=== PATIENT | male | born 1955 | race Caucasian/White ===

== ENCOUNTER 2017-03-03 15:41 | Emergency (ER) | payer MEDICARE, OTHER ==
[~2017-03-03] VITALS: Ht 170.2 cm; Wt 90.7 kg
[2017-03-03] MEDS ORDERED: HYDROmorphone PF 1 MG/ML DISP.SYRIN IV PRN (16:00)
[2017-03-03] MEDS ORDERED: PIP/TAZO PER PHARMACY MC PRN (16:00)
[2017-03-03] MEDS ORDERED: IV NORMAL SALINE 500ML 500 ML IV ONE (16:00)
[2017-03-03] MEDS ORDERED: IV NORMAL SALINE 50ML 50 ML ONE (16:31)
[2017-03-03] MEDS ORDERED: PIPERACILLIN/TAZOBACTAM 4.5 GM VIAL IV ONE (16:31)
--- NOTE | 2017-03-03 16:37 | PHYS DOC ---
Past History Past Medical History: CAD, High Cholesterol, Hypertension Past Surgical History: Other Alcohol Use: Occasionally Drug Use: None Adult General Chief Complaint Chief Complaint: ABDOMINAL PAIN HPI HPI 61-year-old male presenting to the emergency department with pain in his abdomen that is sharp moderate nonradiating intermittent and without alleviating factors. He was seen by his primary care physician who ordered a CT scan of his abdomen which showed evidence of omental fat containing umbilical hernia with inflammatory changes suggestive of strangulation without bowel herniation. He was then directed by his primary care physician to the nearest emergency department. He has pain in his hernia and has noticed a red rash over top of it. He has nausea but has not been vomiting. He reports flatus. Review of systems is negative for fevers chills cough chest pain shortness of breath. All other review of systems is negative unless otherwise noted in history of present illness. ED course: 61-year-old male presenting to the emergency department today after being found to have a strangulated omental fat containing hernia and referred to the emergency department. On examination the patient, the patient has a large ventral hernia that is incarcerated and has clinical evidence of strangulation including overlying cellulitis and tenderness to palpation. The patient is placed nothing by mouth IV established and IV fluids administered along with IV antibiotics. I discussed the case with Dr. Jha our surgeon at [facility] at 4:15 PM. The patient last ate at 1 PM. I discussed the case with Dr. Hatch who will be the accepting physician as a direct admission for further evaluation workup and care. The patient does not show signs of bowel obstruction on CT scan and is not actively vomiting in the emergency department. Review of Systems Review of Systems SEE ABOVE. Current Medications Current Medications Current Medications Medications (Trade) Dose Ordered Sig/Ta Start Time Stop Time Status Last Admin Dose Admin Hydromorphone HCl (Dilaudid) 0.5 mg PRN Q30MIN PRN 03/03/17 16:00 Ondansetron HCl (Zofran) 4 mg 1X ONCE 03/03/17 16:45 03/03/17 16:46 Piperacillin Sod/ Tazobactam Sod (Zosyn Per Pharmacy) 1 each PRN DAILY PRN 03/03/17 16:00 Piperacillin Sod/ Tazobactam Sod 4.5 gm/Sodium Chloride 50 ml @ 100 mls/hr 1X ONCE 03/03/17 16:45 03/03/17 17:14 Sodium Chloride 500 ml @ 0 mls/hr 1X ONCE 03/03/17 16:00 03/03/17 16:22 DC Allergies Allergies Allergies Coded Allergies Type Severity Reaction Last Updated Verified No Known Drug Allergies 03/03/17 No Physical Exam Physical Exam SEE ABOVE Constitutional: Well developed, well nourished, no acute distress, non-toxic appearance. [] HENT: Normocephalic, atraumatic, bilateral external ears normal, oropharynx moist, no oral exudates, nose normal. Eyes: PERRLA, EOMI, conjunctiva normal, no discharge. [] Neck: Normal range of motion, no tenderness, supple, no stridor. Cardiovascular:Heart rate regular rhythm, no murmur [] Lungs & Thorax: Bilateral breath sounds clear to auscultation [] Abdomen: See above. Skin: Warm, dry, no erythema, no rash. [] Back: No tenderness, no CVA tenderness. [] Extremities: No tenderness, no cyanosis, no clubbing, ROM intact, no edema. [] Neurologic: Alert and oriented X 3, normal motor function, normal sensory function, no focal deficits noted. Psychologic: Affect normal, judgement normal, mood normal. [] Current Patient Data Vital Signs Vital Signs Date Time Temp Pulse Resp B/P (MAP) Pulse Ox O2 Delivery O2 Flow Rate FiO2 03/03/17 16:10 97.4 104 16 95 Room Air EKG EKG [] Radiology/Procedures Radiology/Procedures [] Course & Med Decision Making Course & Med Decision Making Pertinent Labs and Imaging studies reviewed. (See chart for details) [] Dragon Disclaimer Dragon Disclaimer This chart was dictated in whole or in part using Voice Recognition software in a busy, high-work load, and often noisy Emergency Department environment. It may contain unintended and wholly unrecognized errors or omissions. Departure Departure: Impression: Primary Impression: Ventral hernia Additional Impression: Strangulated ventral hernia Disposition: ADMITTED INPATIENT Condition: IMPROVED Referrals: SERAFIN SANCHEZ (PCP) Critical Care Time Critical care time was [35] minutes exclusive of procedures. Time was spent evaluating patient, reevaluating the patient, administration of IV fluids and antibiotics, discussion with consulting and admitting providers and documenting. Problem Qualifiers LUIS ORANTES MD Mar 03, 2017 16:37
[2017-03-03 16:42] VITALS: BP 122/69
[2017-03-03 16:44] LABS: BASO # 0.1 x10^3/uL (0.0-0.2); BASO % 1 % (0-3); EOS # 0.5 x10^3/uL (0.0-0.7); EOS % 5 % (0-3); HEMATOCRIT 39.5 % (39.0-53.0); LYMPH # 2.4 x10^3/uL (1.0-4.8); LYMPH % 24 % (24-48); MEAN CORPUSCULAR HEMOGLOBIN 35 pg (25-35); MEAN CORPUSCULAR HGB CONC 36 g/dL (31-37); MEAN CORPUSCULAR VOLUME 98 fL (79-100); MONO # 1.6 x10^3/uL (0.0-1.1); MONO % 16 % (0-9); NEUT # 5.6 x10^3uL (1.8-7.7); NEUT % 55 % (31-73); PLATELET COUNT 219 x10^3/uL (140-400); RED BLOOD COUNT 4.03 x10^6/uL (4.30-5.70); RED CELL DISTRIBUTION WIDTH 13.2 % (11.5-14.5); WHITE BLOOD COUNT 10.2 x10^3/uL (4.0-11.0)
[2017-03-03] MEDS ORDERED: PIPERACILLIN/TAZOBACTAM 4.5 GM in IV NORMAL SALINE 50ML 50 ML IV ONE (16:45)
[2017-03-03] MEDS ORDERED: ONDANSETRON PF 4 MG/2 ML VIAL. IV ONE (16:45)
[2017-03-03 16:57] LABS: ALBUMIN 3.3 g/dL (3.4-5.0); CALCIUM 8.8 mg/dL (8.5-10.1); DIRECT BILIRUBIN 0.1 mg/dL (0.0-0.2); GFR 75.7; POTASSIUM 3.7 mmol/L (3.5-5.1); TOTAL BILIRUBIN 0.3 mg/dL (0.2-1.0)
[2017-03-03] MEDS ORDERED: NICOTINE 14MG PATCH. TD ONE (17:00)
[2017-03-03 17:17] LABS: BILIRUBIN,URINE NEG (NEG); CLARITY,URINE CLEAR; COLOR,URINE STRAW; GLUCOSE,URINE 100 mg/dL (NEG); NITRITE,URINE NEG (NEG); UROBILINOGEN,URINE 0.2 mg/dL (0.2 mg/dL)
[2017-03-03 17:18] LABS: BACTERIA,URINE 0 /HPF (0-FEW); SQUAMOUS EPITHELIAL CELL,UR FEW /LPF; WBC,URINE 0 /HPF (0-4)
== END 2017-03-03 16:55 | disposition short-term general hospital (02) ==
LOC: ER 15:41
DX: K43.6 Other and unspecified ventral hernia with obstruction, without gangrene (principal); I25.10 Atherosclerotic heart disease of native coronary artery without angina pectoris; E78.00 Pure hypercholesterolemia, unspecified; I10 Essential (primary) hypertension
CPT/HCPCS: 36415; 80048; 80076; 81001; 83605; 83690; 84484; 85025; 96365; 96375; 99291; J1170; J2405; J2543; J7040